=== PATIENT | female | born 1975 | race American Indian/Alaskan Native ===

== ENCOUNTER 2022-10-29 17:17 | Emergency (ER) | payer SELFPAY | END 2022-10-29 20:03 | disposition left against medical advice (07) | LOC: ER 17:18 | DX: M79.603 Pain in arm, unspecified (principal); Z53.21 Procedure and treatment not carried out due to patient leaving prior to being seen by health care provider ==

== ENCOUNTER 2022-11-01 13:01 | Emergency (ER) | payer OTHER ==
[~2022-11-01] VITALS: Ht 152.4 cm; Wt 80.0 kg
[2022-11-01] MEDS ORDERED: ibuprofen tablet 400 MG TABLET PO ONE (17:10)
[2022-11-01] MEDS ORDERED: LIDOcaine/epinephrine/tetracaine TOPICAL sol 3 ML syringe TOP ONE (17:10)
[2022-11-01] MEDS ORDERED: CEPH-585 PO (17:56)
[2022-11-01 17:59] VITALS: BP 132/68
== END 2022-11-01 18:07 | disposition home or self-care (01) ==
LOC: ER 13:02
DX: L03.012 Cellulitis of left finger (principal); M79.645 Pain in left finger(s); F17.200 Nicotine dependence, unspecified, uncomplicated; Z79.2 Long term (current) use of antibiotics
CPT/HCPCS: 10060; 99283; J3490; A6258; A6449